=== PATIENT | female | born 1945 | race Caucasian/White ===

== ENCOUNTER 2021-05-07 09:26 | Emergency (ER) | payer MEDICARE, OTHER ==
[2021-05-07] MEDS ORDERED: diphenhydrAMINE 50 MG/ML SDV IM ONE (09:44)
[2021-05-07] MEDS ORDERED: methylPREDNISolone Sodium Succinate 125 MG/2 ML SDV IM ONE (09:44)
--- NOTE | 2021-05-07 09:51 | EDM.PDOC ---
ED HPI GENERAL MEDICAL PROBLEM - General Chief Complaint: Skin Complaint Stated Complaint: rash Time Seen by Provider: 05/07/21 09:30 Source of Information: Reports: Patient History Limitations: Reports: No Limitations - History of Present Illness INITIAL COMMENTS - FREE TEXT/NARRATIVE: Patient comes into the emergency department with a complaint of a rash. Patient states that the rash started when she woke up this morning. Patient states that it has spread throughout her body. She states that it is extremely itchy. She states that it is welt formation. She denies any shortness of breath, dizziness, lightheadedness, blurred vision, range of motion or CMS concerns. She also denies any fever. Patient states that they went out to supper last night and did have some curly fries with some seasoning that she is not accustomed to. She has put on cortisone cream over the area but has not tried any Benadryl or other remedies to help with the rash. Onset: Sudden Location: Reports: Generalized Quality: Reports: Other (itching) Severity: Moderate Improves with: Reports: None Worsens with: Reports: None Associated Symptoms: Reports: No Other Symptoms - Related Data Allergies Allergy/AdvReac Type Severity Reaction Status Date / Time No Known Allergies Allergy Verified 05/07/21 09:40 Home Meds: Home Meds Sertraline [Zoloft] 50 mg PO DAILY 05/07/21 [History] amLODIPine [Norvasc] 5 mg PO DAILY 05/07/21 [History] atorvaSTATin [Lipitor] 40 mg PO BEDTIME 05/07/21 [History] lisinopriL [Lisinopril] 5 mg PO DAILY 05/07/21 [History] Past Medical History Cardiovascular History: Reports: High Cholesterol, Hypertension Psychiatric History: Reports: Depression Social & Family History - Tobacco Use Tobacco Use Status *Q: Unknown Ever Used Tobacco ED ROS GENERAL - Review of Systems Review Of Systems: Comprehensive ROS is negative, except as noted in HPI. Constitutional: Reports: No Symptoms HEENT: Reports: No Symptoms Respiratory: Reports: No Symptoms Cardiovascular: Reports: No Symptoms Endocrine: Reports: No Symptoms GI/Abdominal: Reports: No Symptoms : Reports: No Symptoms Musculoskeletal: Reports: No Symptoms Skin: Reports: Urticaria Neurological: Reports: No Symptoms Psychiatric: Reports: No Symptoms Hematologic/Lymphatic: Reports: No Symptoms Immunologic: Reports: No Symptoms ED EXAM, SKIN/RASH Exam: See Below Exam Limited By: No Limitations General Appearance: Alert, WD/WN, No Apparent Distress Eye Exam: Bilateral Eye: EOMI, PERRL Nose: Normal Inspection, Normal Mucosa, No Blood Throat/Mouth: Normal Inspection, Normal Lips, Normal Teeth, Normal Voice, No Airway Compromise Neck: Normal Inspection, Supple, Non-Tender, Full Range of Motion Respiratory/Chest: No Respiratory Distress, Lungs Clear, Normal Breath Sounds, No Accessory Muscle Use, Chest Non-Tender Cardiovascular: Normal Peripheral Pulses, Regular Rate, Rhythm, No Edema GI/Abdominal: Normal Bowel Sounds, Soft, Non-Tender, No Abnormal Bruit Back Exam: Normal Inspection, Full Range of Motion Extremities: Normal Inspection, Normal Range of Motion, Non-Tender, No Pedal Edema, Normal Capillary Refill Neurological: Alert, Oriented, Normal Gait Psychiatric: Normal Affect, Normal Mood Skin: Intact Location, Skin: Generalized Characteristics: Urticarial Course - Vital Signs Last Recorded V/S: Last Vital Signs Temp 35.6 C L 05/07/21 09:31 Pulse 67 05/07/21 09:31 Resp 16 05/07/21 09:31 BP 152/69 H 05/07/21 09:31 Pulse Ox 100 05/07/21 09:31 - Orders/Labs/Meds Orders: Active Orders 24 hr Category Date Time Status diphenhydrAMINE [Benadryl] Med 05/07/21 09:44 Once 50 mg IM ONETIME ONE methylPREDNISolone Sod Succ [Solu-MEDROL] Med 05/07/21 09:44 Once 125 mg IM ONETIME ONE Medication Orders Diphenhydramine HCl (Diphenhydramine 50 Mg/Ml Sdv) 50 mg IM ONETIME ONE Stop: 05/07/21 09:45 Methylprednisolone Sodium Succinate (Methylprednisolone Sodium Succinate 125 Mg/2 Ml Sdv) 125 mg IM ONETIME ONE Stop: 05/07/21 09:45 Meds: Medications Generic Name Dose Route Start Last Admin Trade Name Freq PRN Reason Stop Dose Admin Diphenhydramine HCl 50 mg 05/07/21 09:44 Diphenhydramine 50 Mg/Ml Sdv IM 05/07/21 09:45 ONETIME ONE Methylprednisolone Sodium Succinate 125 mg 05/07/21 09:44 Methylprednisolone Sodium Succinate 125 Mg/2 Ml Sdv IM 05/07/21 09:45 ONETIME ONE Departure - Departure Time of Disposition: 10:00 Disposition: Home, Self-Care 01 Condition: Good Clinical Impression: Urticaria - Discharge Information *PRESCRIPTION DRUG MONITORING PROGRAM REVIEWED*: Not Applicable *COPY OF PRESCRIPTION DRUG MONITORING REPORT IN PATIENT ARTEM: Not Applicable Instructions: Nicolees, [id number] Additional Instructions: 1. Can take Benadryl every 4 hours to help with the rash 2. Can also use anti itch or Benadryl cream on the skin to help with the itching 3. increase your water intake 4. Continue all at home medications 5. Activity and diet as tolerated 6. Can take over the counter Tylenol for any pain or discomfort 7. Follow up with PCP if symptoms continue, return, or progress 8. Call with any questions or concerns Sepsis Event Note (ED) - Focused Exam Vital Signs: Vital Signs Temp Pulse Resp BP Pulse Ox 05/07/21 09:31 35.6 C L 67 16 152/69 H 100 - My Orders Last 24 Hours: My Active Orders 05/07/21 09:44 diphenhydrAMINE [Benadryl] 50 mg IM ONETIME ONE methylPREDNISolone Sod Succ [Solu-MEDROL] 125 mg IM ONETIME ONE - Assessment/Plan Last 24 Hours: My Active Orders 05/07/21 09:44 diphenhydrAMINE [Benadryl] 50 mg IM ONETIME ONE methylPREDNISolone Sod Succ [Solu-MEDROL] 125 mg IM ONETIME ONE Assessment:: 1. urticarial rash Plan: 1. Benadryl IM given in ER 2. Solumedrol IM given in ER 3. Patient and nursing staff was updated regarding the plan of care 4. Education provided the patient regarding activity, diet, rest, [id number] medication modalities, and follow-up care was provided 5. Patient and family are agreeable to the above plan of care 6. All questions and concerns were addressed with the patient and family prior to discharge
== END 2021-05-07 10:04 | disposition home or self-care (01) ==
LOC: VM.ED 09:26
DX: L50.9 Urticaria, unspecified (principal); I10 Essential (primary) hypertension; E78.00 Pure hypercholesterolemia, unspecified; Z79.899 Other long term (current) drug therapy
CPT/HCPCS: 96372; 99282; 99283; J1200; J2930

== ENCOUNTER 2021-05-14 11:04 | Inpatient (IN) | payer MEDICARE ==
[2021-05-14] MEDS ORDERED: Ondansetron 4 MG/2 ML SDV IVPUSH ONE (11:27)
[2021-05-14] MEDS: Sodium Chloride 0.9% 1,000 ML IV SCH ×2 (11:36→18:37)
[2021-05-14 11:58] LABS: CHLORIDE,CL 101 mmol/L (98-107); SODIUM,NA 140 mmol/L (136-145)
[2021-05-14 12:02] LABS: PTT,PARTIAL THROMBOPLSTIN TIME 20.9 SEC (25.6-32.8)
[2021-05-14 12:08] LABS: ANION GAP 18.8 mmol/L (5-15)
--- NOTE | 2021-05-14 13:58 | CT ---
[id number] CT/CT Abdomen Pelvis W IV EXAM: CT Abdomen Pelvis W IV CLINICAL DATA: PANCREATITIS. COMPARISON STUDY: None. FINDINGS: Prominent appearance of the pancreas head. Parenchyma demonstrates slightly heterogeneous density and enhancement. No focal lesion. No ductal dilation. Findings are nonspecific and can be seen with early/mild changes of acute pancreatitis. Liver, gallbladder, common bile duct, spleen, adrenal glands, and kidneys are unremarkable. Colonic diverticulosis. No evidence of acute diverticulitis. No colitis. No small bowel obstruction or inflammation.Appendix is normal. No lymphadenopathy, free fluid, or pneumoperitoneum. Uterus and adnexal regions are unremarkable. Urinary bladder is unremarkable. Spondylosis. No acute fracture or compression deformity. IMPRESSION: Prominent and slightly heterogeneous appearance of the pancreas head and uncinate process. No evidence of a focal lesion or ductal obstruction. Findings are nonspecific but can be seen with early changes of acute pancreatitis. Correlate with amylase/lipase. Other findings are described above. Orlin Caraballo MD 05/14/21 0882 Thank you for allowing us to participate in the care of your patient.
[2021-05-14] MEDS ORDERED: Iopamidol 612 MG/ML 100 ML Bottle IVPUSH ONE (14:09)
[2021-05-14] MEDS ORDERED: Acetaminophen 325 MG Tab PO PRN (15:14)
[2021-05-14] MEDS ORDERED: Polyethylene Glycol 3350 Powder 17 GM Packet PO PRN (15:14)
[2021-05-14] MEDS ORDERED: Morphine 2 MG/ML SYRINGE IVPUSH PRN (15:18)
[2021-05-14] MEDS ORDERED: Pantoprazole 40 MG Vial IVPUSH SCH (15:30)
[2021-05-14] MEDS: Pantoprazole 40 MG Vial IVPUSH SCH (18:11)
[2021-05-14] MEDS: Ondansetron 4 MG/2 ML SDV IV PRN (18:32)
[2021-05-14] MEDS: Simvastatin 40 MG Tab PO SCH (19:41)
[2021-05-14] MEDS: Donepezil 10 MG Tab PO SCH (19:41)
--- NOTE | 2021-05-14 22:10 | HP ---
Admission history and physical to the acute care floor at [facility]. CHIEF COMPLAINT: Nausea and vomiting. HISTORY OF PRESENT ILLNESS: A 76-year-old female patient with a past medical history of essential hypertension, coronary artery disease, chronic kidney disease, mixed hyperlipidemia, dementia, presented to the emergency room at [facility] earlier today for nausea and vomiting. The patient states that her symptoms started around 2 a.m. yesterday. The patient tried to wait out her symptoms, but they have not improved. She did try some toast, which she vomited yesterday. No previous abdominal surgeries. The patient has not had any recent infections. No recent travel. No change in medications. No questionable foods. The patient denies any fevers or chills. She complains of dizziness. No headaches or lightheadedness. The patient denies any chest pain or palpitations. No shortness of breath or cough. The patient states she has abdominal pain only during vomiting. Otherwise, her abdomen feels okay. She is passing gas. Her last bowel movement was 2 days ago. Bowel movement was formed and soft. PAST MEDICAL HISTORY: 1. Coronary artery disease. 2. Mixed hyperlipidemia. 3. Essential hypertension. 4. Major depressive disorder. 5. Memory loss. 6. Dementia without behavioral disturbance. 7. Bradycardia. SURGICAL HISTORY: 1. Laminectomy. 2. Coronary angioplasty with stent placement. 3. Tonsillectomy. 4. Tubal ligation. FAMILY HISTORY: Noncontributory. ALLERGIES: No known drug allergies. MEDICATIONS: 1. Aricept 10 mg 1 tablet p.o. daily. 2. Zocor 40 mg 1 tablet p.o. daily. 3. Amlodipine 5 mg 1 tablet p.o. daily. 4. Aspirin 81 mg 1 tablet p.o. daily. 5. Sertraline 25 mg 1 tablet p.o. daily. 6. Nitrostat 0.4 mg as directed. REVIEW OF SYSTEMS: See HPI. PHYSICAL EXAMINATION: Vital Signs: Height 5 feet 2 inches, weight 150.4 pounds, temperature 99, pulse 88, blood pressure 159/85, respiratory rate 19, oxygen saturation 98% on room air. Skin: Intact, warm, and dry. Respiratory: Lungs are decreased, but clear throughout. Cardiovascular: Regular rate and rhythm. No murmur. Abdomen: Mild epigastric pain on palpation. Bowel sounds are hypoactive x4. Soft. Extremities: No edema. Neurological: The patient is alert. The patient is oriented to person, place, and time. The patient is cooperative. LABORATORY STUDIES: 1. CBC: White blood cell count 7.4, hemoglobin 13.9, hematocrit 39.9, platelets 215,000. 2. PT 9.7, INR 0.9. 3. PTT 20.9. 4. CMP: Sodium 140, potassium 3.8, chloride 101, CO2 of 24, anion gap 18.8, BUN 26, creatinine 1.2, GFR 44, glucose 114, calcium 9.7, AST 37, ALT 39, alkaline phosphatase 6.9, total protein 8.0. 5. Phosphorus 3.2, magnesium 2.1. 6. Lactic acid 2.2. 7. Amylase 261, lipase 1888. 8. C-reactive protein less than 0.2. 9. Procalcitonin less than 0.05. IMAGING STUDIES: CT of abdomen and pelvis revealed acute pancreatitis. Prominent and slightly heterogeneous appearance of the pancreas head and uncinate process. No evidence of a focal lesion or ductal obstruction. ASSESSMENT: 1. Acute pancreatitis. 2. Dementia without behavioral disturbance. 3. Coronary artery disease. 4. Mixed hyperlipidemia. 5. Essential hypertension. 6. History of coronary angioplasty with stent. 7. Pseudo dementia. 8. Chronic kidney disease. 9. Unstable angina. 10.Major depressive disorder. PLAN: A 76-year-old female patient is admitted to the acute care floor at [facility] for the above diagnoses. The patient will be started on IV fluids. No indication for antibiotics at this time. We will keep the patient n.p.o. for bowel rest. We will start the patient on Protonix IV. The patient will also be started on IV morphine for pain control. We will advance diet possibly tomorrow if the patient is feeling better. Recheck laboratory work tomorrow morning. The patient does wish to be a full code 1. She does wish to transfer to a higher level of care should the need arise. May consider repeating CT if symptoms worsen. Continue home medications the same. This patient was seen and examined by me as an [facility] provider. TB: 05/14/2021 17:06:37 MODL: 05/14/2021 22:00:16 /[id number]
--- NOTE | 2021-05-15 04:48 | EDM.PDOC ---
ED HPI GENERAL MEDICAL PROBLEM - General Chief Complaint: Gastrointestinal Problem Stated Complaint: Nausea and Vomiting Time Seen by Provider: 05/14/21 13:38 Source of Information: Reports: Patient, Family History Limitations: Reports: No Limitations - History of Present Illness INITIAL COMMENTS - FREE TEXT/NARRATIVE: Pt. presents to ER with complaints of nausea, vomiting, and abdominal cramping. She states that the symptoms developed early Saturday AM. She has not had any fever or chills. Denies any chest pain or shortness of breath. Denies any focal abdominal pain but complains of some diffuse cramping. Denies any bloody stools. No sore throat, rhinorrhea, or congestion. Denies any chest pain or shortness of breath. Denies any current diarrhea, melena, hematochezia, or hematemesis. Pt. denies any history of ETOH consumption. Onset Date: 05/14/21 Location: Reports: Abdomen Associated Symptoms: Reports: Confusion (History of dementia), Loss of Appetite, Malaise, Nausea/Vomiting. Denies: Chest Pain, Cough, cough w sputum, Diaphoresis, Fever/Chills, Headaches, Seizure, Shortness of Breath, Weakness - Related Data Allergies Allergy/AdvReac Type Severity Reaction Status Date / Time No Known Allergies Allergy Verified 05/14/21 13:28 Home Meds: Home Meds Sertraline [Zoloft] 50 mg PO DAILY 05/07/21 [History] amLODIPine [Norvasc] 5 mg PO DAILY 05/07/21 [History] atorvaSTATin [Lipitor] 40 mg PO BEDTIME 05/07/21 [History] lisinopriL [Lisinopril] 5 mg PO DAILY 05/07/21 [History] Past Medical History Cardiovascular History: Reports: High Cholesterol, Hypertension Gastrointestinal History: Reports: Pancreatitis Psychiatric History: Reports: Dementia, Depression - Infectious Disease History Infectious Disease History: Reports: None Social & Family History - Tobacco Use Tobacco Use Status *Q: Unknown Ever Used Tobacco ED ROS GENERAL - Review of Systems Review Of Systems: See Below Constitutional: Reports: Malaise HEENT: Reports: No Symptoms Respiratory: Reports: No Symptoms Cardiovascular: Reports: No Symptoms Endocrine: Reports: No Symptoms GI/Abdominal: Reports: Nausea, Vomiting. Denies: Black Stool, Bloody Stool, Melena : Reports: No Symptoms Musculoskeletal: Reports: No Symptoms Skin: Reports: No Symptoms Neurological: Reports: No Symptoms Psychiatric: Reports: No Symptoms ED EXAM, GENERAL - Physical Exam Exam: See Below Exam Limited By: No Limitations General Appearance: Alert, WD/WN, No Apparent Distress Throat/Mouth: Normal Inspection, Normal Lips, Normal Teeth, Normal Gums, Normal Oropharynx, Normal Voice, No Airway Compromise Head: Atraumatic, Normocephalic Neck: Normal Inspection, Supple, Non-Tender, Full Range of Motion Respiratory/Chest: No Respiratory Distress, Lungs Clear, Normal Breath Sounds, No Accessory Muscle Use, Chest Non-Tender Cardiovascular: Normal Peripheral Pulses, Regular Rate, Rhythm, No Edema, No JVD Peripheral Pulses: 4+: Radial (R) GI/Abdominal: Soft, Non-Tender, No Organomegaly, No Distention, No Mass (Female) Exam: Deferred Rectal (Female) Exam: Deferred Back Exam: Normal Inspection, Full Range of Motion Extremities: Normal Inspection, Normal Range of Motion, Non-Tender, No Pedal Edema, Normal Capillary Refill Neurological: Alert, Oriented, CN II-XII Intact, Normal Cognition, No Motor/ Sensory Deficits Course - Vital Signs Last Recorded V/S: Last Vital Signs Temp 36.7 C 05/15/21 02:00 Pulse 89 05/15/21 02:00 Resp 16 05/15/21 02:00 BP 145/78 H 05/14/21 22:00 Pulse Ox 98 05/15/21 02:00 - Orders/Labs/Meds Orders: Active Orders 24 hr Category Date Time Status Sodium Chloride 0.9% [Saline Flush] Med 05/14/21 11:25 Active 10 ml FLUSH ASDIRECTED PRN Peripheral IV Insertion Adult [OM.PC] Routine Oth 05/14/21 11:25 Ordered Medication Orders Acetaminophen (Acetaminophen 325 Mg Tab) 650 mg PO Q4H PRN PRN Reason: Pain (Mild 1-3)/fever Amlodipine Besylate (Amlodipine 5 Mg Tab) 5 mg PO DAILY [facility] Donepezil HCl (Donepezil 10 Mg Tab) 10 mg PO BEDTIME [facility] Last Admin: 05/14/21 19:41 Dose: 10 mg Documented by: YAMILE Sodium Chloride (Normal Saline) 1,000 mls @ 100 mls/hr IV ASDIRECTED JITENDRA Lisinopril (Lisinopril 5 Mg Tab) 5 mg PO DAILY [facility] Morphine Sulfate (Morphine 2 Mg/Ml Syringe) 1 mg IVPUSH Q4H PRN PRN Reason: Pain Ondansetron HCl (Ondansetron 4 Mg/2 Ml Sdv) 4 mg IV Q6H PRN PRN Reason: Nausea/Vomiting Last Admin: 05/14/21 18:32 Dose: 4 mg Documented by: JOEL Pantoprazole Sodium (Pantoprazole 40 Mg Vial) 40 mg IVPUSH 0600,1800 [facility] Last Admin: 05/14/21 18:11 Dose: Not Given Documented by: SHERRY Polyethylene Glycol (Polyethylene Glycol 3350 Powder 17 Gm Packet) 17 gm PO DAILY PRN PRN Reason: Constipation Sertraline HCl (Sertraline 25 Mg Tab) 25 mg PO DAILY [facility] Simvastatin (Simvastatin 40 Mg Tab) 40 mg PO BEDTIME [facility] Last Admin: 05/14/21 19:41 Dose: 40 mg Documented by: YAMILE Sodium Chloride (Sodium Chloride 0.9% 10 Ml Syringe) 10 ml FLUSH ASDIRECTED PRN PRN Reason: Keep Vein Open Labs: Laboratory Tests 05/14/21 05/14/21 05/14/21 Range/Units 11:33 11:33 11:33 WBC 7.4 (4.0-10.0) x10^3/uL RBC 4.51 (4.00-5.50) x10^6/uL Hgb 13.9 (12.0-16.0) g/dL Hct 39.9 (33.0-47.0) % MCV 88.5 (78.0-93.0) fL MCH 30.8 (26.0-32.0) pg MCHC 34.8 (32.0-36.0) g/dL RDW Coeff of Jeimy 13.2 (10.0-15.0) % Plt Count 215 (130-400) x10^3/uL Immature Gran % (Auto) 0.30 (0.00-0.43) % Neut % (Auto) 78.0 (50.0-80.0) % Lymph % (Auto) 13.9 L (25.0-50.0) % [place] % (Auto) 7.6 (2.0-11.0) % Eos % (Auto) 0.1 (0.0-4.0) % Baso % (Auto) 0.1 L (0.2-1.2) % Neut # (Auto) 5.7 (1.8-7.7) x10^3/uL Lymph # (Auto) 1.0 (1.0-4.8) x10^3/uL [place] # (Auto) 0.6 (0.0-0.8) x10^3/uL Eos # (Auto) 0.0 (0.0-0.5) x10^3/uL Baso # (Auto) 0.0 (0.0-0.2) x10^3/uL Immature Gran # (Auto) 0.02 (0.00-0.07) x10^3/uL PT 9.7 L (9.9-12.5) SEC INR 0.9 L (2.0-3.5) APTT 20.9 L (25.6-32.8) SEC Sodium 140 (136-145) mmol/L Potassium 3.8 (3.5-5.1) mmol/L Chloride 101 (98-107) mmol/L Carbon Dioxide 24 (21-32) mmol/L Anion Gap 18.8 H (5-15) mmol/L BUN 26 H (7-18) mg/dL Creatinine 1.2 H (0.55-1.02) mg/dL Est Cr Clr Drug Dosing TNP Estimated GFR (MDRD) 44 Glucose 114 H (70-99) mg/dL Lactic Acid (0.4-2.0) mmol/L Calcium 9.7 (8.5-10.1) mg/dL Corrected Calcium 9.6 (8.5-10.1) mg/dL Phosphorus 3.2 (2.6-4.7) mg/dL Magnesium 2.1 (1.8-2.4) mg/dL Total Bilirubin 0.7 (0.2-1.0) mg/dL AST 37 (15-37) U/L ALT 39 (14-59) U/L Alkaline Phosphatase 69 (46-116) U/L C-Reactive Protein < 0.2 (<=0.9) mg/dL Total Protein 8.0 (6.4-8.2) g/dL Albumin 4.1 (3.4-5.0) g/dL Globulin 3.9 Albumin/Globulin Ratio 1.05 Triglycerides (0-149) mg/dL Amylase 261 H (25-115) U/L Lipase 1888 H (73-393) U/L Procalcitonin (0.1-0.50) ng/mL Urine Color (YELLOW) Urine Appearance (CLEAR) Urine pH (5.0-8.0) Ur Specific [employer] Urine Protein (NEGATIVE) mg/dL Urine Glucose (UA) (NEGATIVE) mg/dL Urine Ketones (NEGATIVE) mg/dL Urine Occult Blood (NEGATIVE) Urine Nitrite (NEGATIVE) Urine Bilirubin (NEGATIVE) Urine Urobilinogen (0.2) EU/dL Ur Leukocyte Esterase (NEGATIVE) Urine RBC (NOT SEEN) /HPF Urine WBC (NOT SEEN) /HPF Ur Squamous Epith Cells (NOT SEEN) /HPF Urine Bacteria (NOT SEEN) /HPF Urine Mucus (NOT SEEN) /LPF 05/14/21 05/14/21 05/14/21 Range/Units 11:33 11:33 11:33 WBC (4.0-10.0) x10^3/uL RBC (4.00-5.50) x10^6/uL Hgb (12.0-16.0) g/dL Hct (33.0-47.0) % MCV (78.0-93.0) fL MCH (26.0-32.0) pg MCHC (32.0-36.0) g/dL RDW Coeff of Jeimy (10.0-15.0) % Plt Count (130-400) x10^3/uL Immature Gran % (Auto) (0.00-0.43) % Neut % (Auto) (50.0-80.0) % Lymph % (Auto) (25.0-50.0) % [place] % (Auto) (2.0-11.0) % Eos % (Auto) (0.0-4.0) % Baso % (Auto) (0.2-1.2) % Neut # (Auto) (1.8-7.7) x10^3/uL Lymph # (Auto) (1.0-4.8) x10^3/uL [place] # (Auto) (0.0-0.8) x10^3/uL Eos # (Auto) (0.0-0.5) x10^3/uL Baso # (Auto) (0.0-0.2) x10^3/uL Immature Gran # (Auto) (0.00-0.07) x10^3/uL PT (9.9-12.5) SEC INR (2.0-3.5) APTT (25.6-32.8) SEC Sodium (136-145) mmol/L Potassium (3.5-5.1) mmol/L Chloride (98-107) mmol/L Carbon Dioxide (21-32) mmol/L Anion Gap (5-15) mmol/L BUN (7-18) mg/dL Creatinine (0.55-1.02) mg/dL Est Cr Clr Drug Dosing Estimated GFR (MDRD) Glucose (70-99) mg/dL Lactic Acid 2.2 H* (0.4-2.0) mmol/L Calcium (8.5-10.1) mg/dL Corrected Calcium (8.5-10.1) mg/dL Phosphorus (2.6-4.7) mg/dL Magnesium (1.8-2.4) mg/dL Total Bilirubin (0.2-1.0) mg/dL AST (15-37) U/L ALT (14-59) U/L Alkaline Phosphatase (46-116) U/L C-Reactive Protein (<=0.9) mg/dL Total Protein (6.4-8.2) g/dL Albumin (3.4-5.0) g/dL Globulin Albumin/Globulin Ratio Triglycerides 120 (0-149) mg/dL Amylase (25-115) U/L Lipase (73-393) U/L Procalcitonin < 0.05 L (0.1-0.50) ng/mL Urine Color (YELLOW) Urine Appearance (CLEAR) Urine pH (5.0-8.0) Ur Specific [employer] Urine Protein (NEGATIVE) mg/dL Urine Glucose (UA) (NEGATIVE) mg/dL Urine Ketones (NEGATIVE) mg/dL Urine Occult Blood (NEGATIVE) Urine Nitrite (NEGATIVE) Urine Bilirubin (NEGATIVE) Urine Urobilinogen (0.2) EU/dL Ur Leukocyte Esterase (NEGATIVE) Urine RBC (NOT SEEN) /HPF Urine WBC (NOT SEEN) /HPF Ur Squamous Epith Cells (NOT SEEN) /HPF Urine Bacteria (NOT SEEN) /HPF Urine Mucus (NOT SEEN) /LPF 05/14/21 Range/Units 12:18 WBC (4.0-10.0) x10^3/uL RBC (4.00-5.50) x10^6/uL Hgb (12.0-16.0) g/dL Hct (33.0-47.0) % MCV (78.0-93.0) fL MCH (26.0-32.0) pg MCHC (32.0-36.0) g/dL RDW Coeff of Jeimy (10.0-15.0) % Plt Count (130-400) x10^3/uL Immature Gran % (Auto) (0.00-0.43) % Neut % (Auto) (50.0-80.0) % Lymph % (Auto) (25.0-50.0) % [place] % (Auto) (2.0-11.0) % Eos % (Auto) (0.0-4.0) % Baso % (Auto) (0.2-1.2) % Neut # (Auto) (1.8-7.7) x10^3/uL Lymph # (Auto) (1.0-4.8) x10^3/uL [place] # (Auto) (0.0-0.8) x10^3/uL Eos # (Auto) (0.0-0.5) x10^3/uL Baso # (Auto) (0.0-0.2) x10^3/uL Immature Gran # (Auto) (0.00-0.07) x10^3/uL PT (9.9-12.5) SEC INR (2.0-3.5) APTT (25.6-32.8) SEC Sodium (136-145) mmol/L Potassium (3.5-5.1) mmol/L Chloride (98-107) mmol/L Carbon Dioxide (21-32) mmol/L Anion Gap (5-15) mmol/L BUN (7-18) mg/dL Creatinine (0.55-1.02) mg/dL Est Cr Clr Drug Dosing Estimated GFR (MDRD) Glucose (70-99) mg/dL Lactic Acid (0.4-2.0) mmol/L Calcium (8.5-10.1) mg/dL Corrected Calcium (8.5-10.1) mg/dL Phosphorus (2.6-4.7) mg/dL Magnesium (1.8-2.4) mg/dL Total Bilirubin (0.2-1.0) mg/dL AST (15-37) U/L ALT (14-59) U/L Alkaline Phosphatase (46-116) U/L C-Reactive Protein (<=0.9) mg/dL Total Protein (6.4-8.2) g/dL Albumin (3.4-5.0) g/dL Globulin Albumin/Globulin Ratio Triglycerides (0-149) mg/dL Amylase (25-115) U/L Lipase (73-393) U/L Procalcitonin (0.1-0.50) ng/mL Urine Color Yellow (YELLOW) Urine Appearance Clear (CLEAR) Urine pH 6.5 (5.0-8.0) Ur Specific [employer] 1.020 Urine Protein 30 H (NEGATIVE) mg/dL Urine Glucose (UA) Negative (NEGATIVE) mg/dL Urine Ketones Trace H (NEGATIVE) mg/dL Urine Occult Blood Negative (NEGATIVE) Urine Nitrite Negative (NEGATIVE) Urine Bilirubin Small H (NEGATIVE) Urine Urobilinogen 0.2 (0.2) EU/dL Ur Leukocyte Esterase Negative (NEGATIVE) Urine RBC Not seen (NOT SEEN) /HPF Urine WBC 0-5 (NOT SEEN) /HPF Ur Squamous Epith Cells Few H (NOT SEEN) /HPF Urine Bacteria Occasional H (NOT SEEN) /HPF Urine Mucus Few H (NOT SEEN) /LPF Meds: Medications Generic Name Dose Route Start Last Admin Trade Name Freq PRN Reason Stop Dose Admin Acetaminophen 650 mg 05/14/21 15:14 Acetaminophen 325 Mg Tab PO Q4H PRN Pain (Mild 1-3)/fever Amlodipine Besylate 5 mg 05/15/21 08:00 Amlodipine 5 Mg Tab PO DAILY JITENDRA Donepezil HCl 10 mg 05/14/21 20:00 05/14/21 19:41 Donepezil 10 Mg Tab PO 10 mg BEDTIME JITENDRA Administration Sodium Chloride 1,000 mls @ 100 mls/hr 05/14/21 15:30 Normal Saline IV ASDIRECTED JITENDRA Lisinopril 5 mg 05/15/21 08:00 Lisinopril 5 Mg Tab PO DAILY JITENDRA Morphine Sulfate 1 mg 05/14/21 15:18 Morphine 2 Mg/Ml Syringe IVPUSH Q4H PRN Pain Ondansetron HCl 4 mg 05/14/21 15:14 05/14/21 18:32 Ondansetron 4 Mg/2 Ml Sdv IV 4 mg Q6H PRN Administration Nausea/Vomiting Pantoprazole Sodium 40 mg 05/14/21 18:00 05/14/21 18:11 Pantoprazole 40 Mg Vial IVPUSH Not Given 0600,1800 JITENDRA Polyethylene Glycol 17 gm 05/14/21 15:14 Polyethylene Glycol 3350 Powder 17 Gm Packet PO DAILY PRN Constipation Sertraline HCl 25 mg 05/15/21 08:00 Sertraline 25 Mg Tab PO DAILY JITENDRA Simvastatin 40 mg 05/14/21 20:00 05/14/21 19:41 Simvastatin 40 Mg Tab PO 40 mg BEDTIME JITENDRA Administration Sodium Chloride 10 ml 05/14/21 11:25 Sodium Chloride 0.9% 10 Ml Syringe FLUSH ASDIRECTED PRN Keep Vein Open Discontinued Medications Generic Name Dose Route Start Last Admin Trade Name Freq PRN Reason Stop Dose Admin Sodium Chloride 1,000 mls @ 1,000 mls/hr 05/14/21 11:30 05/14/21 18:37 Normal Saline IV 1,000 mls/hr ASDIRECTED JITENDRA Administration Iopamidol 100 ml 05/14/21 14:09 05/14/21 14:12 Iopamidol 612 Mg/Ml 100 Ml Bottle IVPUSH 05/14/21 14:10 100 ml ONETIME ONE Administration Ondansetron HCl 4 mg 05/14/21 11:27 05/14/21 11:36 Ondansetron 4 Mg/2 Ml Sdv IVPUSH 05/14/21 11:28 4 mg ONETIME ONE Administration Pantoprazole Sodium 40 mg 05/14/21 15:30 05/14/21 16:58 Pantoprazole 40 Mg Vial IVPUSH 40 mg Q12H JITENDRA Administration - Radiology Interpretation Free Text/Narrative:: CT abdomen and pelvis with IV contrast obtained. Evidence of diffuse pancreatic enlargement. No obstructive pattern. No focal lesions noted. Departure - Departure Time of Disposition: 14:40 (.) Disposition: Admitted As Inpatient 67 Clinical Impression: Pancreatitis - Discharge Information Sepsis Event Note (ED) - Evaluation Sepsis Screening Result: No Definite Risk - Problem List Review Problem List Initiated/Reviewed/Updated: Yes - My Orders Last 24 Hours: My Active Orders 05/14/21 11:25 Sodium Chloride 0.9% [Saline Flush] 10 ml FLUSH ASDIRECTED PRN Peripheral IV Insertion Adult [OM.PC] Routine - Assessment/Plan Last 24 Hours: My Active Orders 05/14/21 11:25 Sodium Chloride 0.9% [Saline Flush] 10 ml FLUSH ASDIRECTED PRN Peripheral IV Insertion Adult [OM.PC] Routine Plan: Pt. will be admitted acutely. She is a code 1. Toribio Shahid will be admitting the patient. Continue with IV normal saline fluid resuscitation. She was kept NPO in ER.
[2021-05-15] MEDS: Sodium Chloride 0.9% 10 ML Syringe FLUSH PRN ×2 (05:32→08:25)
[2021-05-15] MEDS: Pantoprazole 40 MG Vial IVPUSH SCH ×2 (05:32→17:05)
[2021-05-15] MEDS: Sodium Chloride 0.9% 1,000 ML IV SCH ×4 (05:32→23:00)
[2021-05-15 07:51] LABS: ANION GAP 15.5 mmol/L (5-15)
[2021-05-15] MEDS ORDERED: Sertraline 25 MG Tab PO SCH (08:00)
[2021-05-15] MEDS ORDERED: amLODIPine 5 MG Tab PO SCH (08:00)
[2021-05-15] MEDS: Ondansetron 4 MG/2 ML SDV IV PRN ×2 (08:24→19:41)
[2021-05-15] MEDS: Lisinopril 5 MG Tab PO SCH (08:26)
--- NOTE | 2021-05-15 18:26 | PN ---
Progress Note for YEYO LOOMIS Date: 05/15/2021 Room #: [facility] CHIEF COMPLAINT: Nausea and vomiting. SUBJECTIVE: Hospital day #2 for a 76-year-old female patient who was admitted yesterday to the acute care floor at [facility] for acute pancreatitis. The patient states that her nausea has improved. She has not tried any liquids or solids. The patient has not had any problems with urination. No problems with bowel movements. The patient has not had any vomiting. She states she has intermittent epigastric pain that waxes and wanes but is always present to some degree. The patient has not had any fevers or chills. Patient denies any headaches, dizziness, or lightheadedness. No chest pain or palpitations. No shortness of breath or cough. REVIEW OF SYSTEMS: See HPI. PHYSICAL EXAMINATION: Vital Signs: Temperature 97.2, pulse 73, blood pressure 146/72, respirations 16, and oxygen saturation 97% on room air. Skin: Intact, warm, and dry. Respiratory: Lungs are decreased but clear throughout. Cardiovascular: Regular rate and rhythm, no murmur. Abdomen: Mild epigastric pain on palpation. Bowel sounds are hypoactive x4. Soft. Extremities: No edema. Neurological: The patient is alert. The patient is oriented to person, place, and time. The patient is cooperative. LABORATORY STUDIES: 1. CBC: White blood cell count 6.5, hemoglobin 11.9, hematocrit 34.8, and platelets 174,000. 2. CMP: Sodium 141, potassium 3.5, chloride 106, CO2 of 23, anion gap 15.5, BUN 20, creatinine 1.0, GFR 54, glucose 97, calcium 8.3, total bilirubin 0.6, AST 23, ALT 31, and alkaline phosphatase 52. ASSESSMENT: 1. Acute pancreatitis. 2. Dementia without behavioral disturbance. 3. Coronary artery disease. 4. Mixed hyperlipidemia. 5. Essential hypertension. 6. History of coronary angioplasty with stent placement. 7. Pseudodementia. 8. Chronic kidney disease. 9. Unstable angina. 10.Major depressive disorder. PLAN: A 76-year-old female patient was admitted to the acute care floor at [facility] for the above diagnoses. The patient will continue on IV fluids. We will recheck lipase and amylase this morning. Morphine for pain control. We would advance diet as tolerated to clear liquids and see how the patient tolerates. Continue with Zofran for nausea. Discussed with patient, she needs to get up and walk around. The patient wishes to be a full code 1. The patient does wish to transfer to a higher level of care should the need arise. May consider repeating CT scan if symptoms worsen. Otherwise, continue acute cares for now. This patient was seen and examined by me as an [facility] provider. TB: 05/15/2021 09:18:48 MODL: 05/15/2021 09:48:16 /[id number]
[2021-05-15] MEDS: Donepezil 10 MG Tab PO SCH (19:41)
[2021-05-15] MEDS: Simvastatin 40 MG Tab PO SCH (19:42)
[2021-05-16] MEDS: Pantoprazole 40 MG Vial IVPUSH SCH (06:11)
[2021-05-16 07:15] LABS: ANION GAP 13.2 mmol/L (5-15)
[2021-05-16] MEDS ORDERED: Sertraline 50 MG Tab PO SCH (08:00)
[2021-05-16] MEDS: Lisinopril 5 MG Tab PO SCH (08:29)
[2021-05-16] MEDS: Sodium Chloride 0.9% 10 ML Syringe FLUSH PRN (08:30)
[2021-05-16] MEDS: Ondansetron 4 MG/2 ML SDV IV PRN (08:30)
[2021-05-16] MEDS ORDERED: amLODIPine 10 MG Tab PO SCH (20:00)
--- NOTE | 2021-05-17 20:23 | DISCH ---
Discharge summary from the acute care floor at [facility]. HISTORY OF PRESENT ILLNESS: A 76-year-old female patient with past medical history of essential hypertension, coronary artery disease, chronic kidney disease, mixed hyperlipidemia, dementia, presented to the emergency room at [facility] 2 days ago for nausea and vomiting. It was found that the patient had acute pancreatitis that was seen on CT scan as well as an elevated lipase level. The patient had been having some nausea and vomiting since the prior day. She had a decrease in appetite. Therefore, she presented to the emergency room. BRIEF HOSPITAL COURSE: The patient did very well during her stay. The patient remained afebrile and hemodynamically stable. The patient was placed on IV fluids and kept n.p.o. for 24 hours. She was able to tolerate her diet prior to discharge. The patient's abdominal pain had resolved prior to discharge. The patient's lipase was normal on the day of discharge. The patient was able to ambulate independently in the room. CONSULTATIONS: Case Management. DIET: Low residue, no added sodium. ACTIVITY: As tolerated. REVIEW OF SYSTEMS: Constitutional: Negative. Skin: Negative. Respiratory: Negative. Cardiovascular: Negative. Abdomen: Negative. Extremities: Negative. Neurologic: Negative. DISCHARGE PHYSICAL EXAMINATION: Vital Signs: Temperature 97.6, pulse 74, blood pressure 160/64, respirations 16, oxygen saturation 97% on room air. Skin: Intact, warm, and dry. Respiratory: Lungs are decreased, but clear throughout. Cardiovascular: Regular rate and rhythm. No murmur. Abdomen: Slight tenderness in the epigastric area, otherwise benign. Bowel sounds are hypoactive x4. Extremities: No edema. Neurologic: The patient is alert. The patient is oriented to person, place, and time. DISCHARGE LABORATORY WORK: 1. CBC: White blood cell count 5.9, hemoglobin 11.7, hematocrit 35.3, platelets 166,000. 2. BMP: Sodium 142, potassium 4.2, chloride 108, CO2 of 25, anion gap 13.6, BUN 15, creatinine 1.1, GFR 48, glucose 101, calcium 8.7. ASSESSMENT: 1. Acute pancreatitis. 2. Dementia without behavioral disturbance. 3. Coronary artery disease. 4. Mixed hyperlipidemia. 5. Essential hypertension. 6. History of coronary angioplasty with stent. 7. Pseudodementia. 8. Chronic kidney disease. 9. Unstable angina. 10.Major depressive disorder. PLAN: A 76-year-old female patient was admitted to the acute care floor at [facility] 2 days ago for the above diagnoses. The patient will be discharged home today. The patient is in hemodynamically stable condition and afebrile. Laboratory work is acceptable. We did discuss her diet going forward. Continue on PPI therapy. Pain control with [id number] analgesics as needed. The patient will follow up in the clinic in 1 week for a recheck, sooner if any problems. This patient was seen and examined by me as an [facility] provider. TB: 05/17/2021 13:36:53 MODL: 05/17/2021 20:05:31 /[id number]
== END 2021-05-16 10:18 | disposition home or self-care (01) | DRG 439 ==
LOC: VM.ED 11:04 → VM.MS 14:09
PROVIDERS: ADMIT Nurse Practitioner Family; ATTEND Nurse Practitioner Family
DX: K85.90 Acute pancreatitis without necrosis or infection, unspecified (principal); I25.110 Atherosclerotic heart disease of native coronary artery with unstable angina pectoris; I10 Essential (primary) hypertension; F03.90 Unspecified dementia, unspecified severity, without behavioral disturbance, psychotic disturbance, mood disturbance, and anxiety; E78.2 Mixed hyperlipidemia; N18.9 Chronic kidney disease, unspecified; I12.9 Hypertensive chronic kidney disease with stage 1 through stage 4 chronic kidney disease, or unspecified chronic kidney disease; F32.9 Major depressive disorder, single episode, unspecified; E78.00 Pure hypercholesterolemia, unspecified; Z20.822 Contact with and (suspected) exposure to COVID-19; Z90.89 Acquired absence of other organs; Z98.51 Tubal ligation status; Z95.5 Presence of coronary angioplasty implant and graft; Z79.899 Other long term (current) drug therapy
CPT/HCPCS: 36415; 74177; 80048; 80053; 81001; 82150; 82607; 82728; 82746; 82977; 83540; 83550; 83605; 83690; 83735; 84100; 84134; 84145; 84478; 85025; 85610; 85730; 86140; 96374; 99284; 99285-25; A9270-GY; C9113; J2405; J7030; Q9967; U0002

== ENCOUNTER 2021-08-08 16:03 | Emergency (ER) | payer MEDICARE ==
[2021-08-08] MEDS ORDERED: Acetaminophen 500 MG Tab PO ONE (16:25)
--- NOTE | 2021-08-08 16:32 | EDM.PDOC ---
ED HPI GENERAL MEDICAL PROBLEM - General Chief Complaint: Upper Extremity Injury/Pain Stated Complaint: FALL AND CAN'T MOVE ARM Time Seen by Provider: 08/08/21 16:15 Source of Information: Reports: Patient History Limitations: Reports: No Limitations - History of Present Illness INITIAL COMMENTS - FREE TEXT/NARRATIVE: Patient presents to the ED for left wrist and thumb pain after a fall. She went out with her dog to get the mail and slipped and fell onto an outstretched left wrist. Pain in the left wrist and thumb with some radiation up the arm. Not on a blood thinner. did not hurt anything else. This happened about 2 hours prior to arrival. Onset: Today Duration: Hour(s): Location: Reports: Upper Extremity, Left Left Lower Arm Pain Score (Numeric/FACES): 6 - Related Data Allergies Allergy/AdvReac Type Severity Reaction Status Date / Time No Known Allergies Allergy Verified 08/08/21 16:19 Home Meds: Home Meds atorvaSTATin [Lipitor] 40 mg PO BEDTIME 05/07/21 [History] Acetaminophen [Tylenol] 650 mg PO Q4H PRN 05/15/21 [History] Donepezil HCl [Aricept] 10 mg PO BEDTIME 05/15/21 [History] Sertraline [Zoloft] 50 mg PO DAILY 05/15/21 [History] Aspirin 81 mg PO DAILY 08/08/21 [History] Nitroglycerin [Nitrostat] 0.4 mg SL ASDIRECTED 08/08/21 [History] lisinopriL [Lisinopril] 20 mg PO DAILY 08/08/21 [History] Past Medical History Cardiovascular History: Reports: Angina, High Cholesterol, Hypertension, Stents Respiratory History: Reports: Other (See Below) (pulmonary nodule) Gastrointestinal History: Reports: Pancreatitis Musculoskeletal History: Reports: Back Pain, Chronic Psychiatric History: Reports: Dementia, Depression - Infectious Disease History Infectious Disease History: Reports: None - Past Surgical History Neurological Surgical History: Reports: Laminectomy Social & Family History - Tobacco Use Tobacco Use Status *Q: Unknown Ever Used Tobacco - Recreational Drug Use Recreational Drug Use: No Drug Use in Last 12 Months: No Review of Systems - Review of Systems Review Of Systems: See Below Constitutional: Reports: No Symptoms. Denies: Fever Eyes: Reports: No Symptoms Ears: Reports: No Symptoms Nose: Reports: No Symptoms. Denies: Epistaxis Mouth/Throat: Reports: No Symptoms Respiratory: Reports: No Symptoms. Denies: Shortness of Breath, Cough Cardiovascular: Reports: No Symptoms. Denies: Chest Pain, Lightheadedness GI/Abdominal: Reports: No Symptoms. Denies: Abdominal Pain Musculoskeletal: Reports: Joint Pain (left wrist and thumb) Neurological: Reports: No Symptoms. Denies: Confusion, Dizziness, Headache ED EXAM, GENERAL - Physical Exam Exam: See Below Exam Limited By: No Limitations General Appearance: Alert, WD/WN, No Apparent Distress Eye Exam: Bilateral Eye: EOMI, Normal Inspection, PERRL Ears: Normal External Exam, Hearing Grossly Normal Nose: Normal Inspection, Normal Mucosa Throat/Mouth: Normal Inspection, Normal Voice, No Airway Compromise Head: Atraumatic, Normocephalic Neck: Normal Inspection Respiratory/Chest: No Respiratory Distress, Lungs Clear Cardiovascular: Normal Peripheral Pulses, Regular Rate, Rhythm, No Murmur Extremities: Other (sensation intact to the fingers to light touch. ecymosis noted at the left thumb base and increased pain with opposition. small echymosis mid forearm. pain with supination at the wrist. swellling at the distal radius. pain with flexion and extension of the wrist. ) Neurological: Alert, Oriented, CN II-XII Intact, No Motor/Sensory Deficits Psychiatric: Normal Affect ED TRAUMA EXTREMITY PROCEDURES - Splinting Left Upper Extremity Pre-Procedure NV Status: Normal Post-Procedure NV Status: Normal Splint Material: Fiberglass, Other (stockinet, padding, acwe wrap after) Splint Design: Thumb Spica, Sugar Tong Applied & Form Fitted By: Provider Provider Post-Splint Application NV Check: NV Status Normal Complications: No Course - Vital Signs Last Recorded V/S: Last Vital Signs Temp 36.4 C 08/08/21 16:08 Pulse 74 08/08/21 16:08 Resp 18 08/08/21 16:08 BP 174/84 H 08/08/21 16:08 Pulse Ox 100 08/08/21 16:08 - Orders/Labs/Meds Orders: Active Orders 24 hr Category Date Time Status DME for Discharge [COMM] Stat Oth 08/08/21 16:58 Ordered Meds: Medications Discontinued Medications Generic Name Dose Route Start Last Admin Trade Name Freq PRN Reason Stop Dose Admin Acetaminophen 1,000 mg 08/08/21 16:25 08/08/21 16:39 Acetaminophen 500 Mg Tab PO 08/08/21 16:26 1,000 mg ONETIME ONE Administration - Radiology Interpretation Free Text/Narrative:: distal radius fracture in good overall alignment. DJD at the bas of the thumb on the left query small fracture. preliminary read only Departure - Departure Time of Disposition: 16:59 Disposition: Home, Self-Care 01 Condition: Good Clinical Impression: Fracture of radius - Discharge Information *PRESCRIPTION DRUG MONITORING PROGRAM REVIEWED*: Not Applicable *COPY OF PRESCRIPTION DRUG MONITORING REPORT IN PATIENT ARTEM: Not Applicable Instructions: RICE Therapy for Routine Care of Injuries, [id number], Acute Compartment Syndrome, Radial Fracture, Cast or Splint Care, Adult, [id number] Referrals: PCP,None [Primary Care Provider] - Forms: ED Department Discharge Additional Instructions: Use tylenol for pain. Ice, elevate and use the sling with the hand going upward instead of down. If the fingers get swollen or are numb, elevate and wiggle the fingers. You can remove the pastor wrap if needed for swelling. leave the splint in place and rewrap the pastor wraps. If the fingers become white, numb, the pain is out of proportion to what it should and the arm tissue is hard when you remove it, proceed to the ED OBO. This could be compartment syndrome and is an emergency. Call and make appointment next week for orthopedic follow up in 7 days. Do NOT get the splint wet. If it does, return to the ED for changing of this. Sepsis Event Note (ED) - Focused Exam Vital Signs: Vital Signs Temp Pulse Resp BP Pulse Ox 08/08/21 16:08 36.4 C 74 18 174/84 H 100 - My Orders Last 24 Hours: My Active Orders 08/08/21 16:58 DME for Discharge [COMM] Stat - Assessment/Plan Last 24 Hours: My Active Orders 08/08/21 16:58 DME for Discharge [COMM] Stat
--- NOTE | 2021-08-08 17:00 | CR ---
[id number] RAD/RAD Fingers Left EXAM: RAD Wrist Left 3V Min, RAD Fingers Left INDICATION: FALL ON OUTSTRETCHED ARM. COMPARISON: None. 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 There is an acute nondisplaced distal radius fracture. IMPRESSION: 1. Acute nondisplaced distal radius fracture. Calvin Hernández MD 08/08/21 [id number] Thank you for allowing us to participate in the care of your patient.
--- NOTE | 2021-08-08 17:00 | CR ---
[id number] RAD/RAD Wrist Left 3V Min EXAM: RAD Wrist Left 3V Min, RAD Fingers Left INDICATION: FALL ON OUTSTRETCHED ARM. COMPARISON: None. 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 There is an acute nondisplaced distal radius fracture. IMPRESSION: 1. Acute nondisplaced distal radius fracture. Calvin Hernández MD 08/08/21 [id number] Thank you for allowing us to participate in the care of your patient.
== END 2021-08-08 17:17 | disposition home or self-care (01) ==
LOC: VM.ED 16:03
DX: S52.502A Unspecified fracture of the lower end of left radius, initial encounter for closed fracture (principal); I10 Essential (primary) hypertension; E78.00 Pure hypercholesterolemia, unspecified; Z79.82 Long term (current) use of aspirin; Z79.899 Other long term (current) drug therapy; W01.0XXA Fall on same level from slipping, tripping and stumbling without subsequent striking against object, initial encounter
CPT/HCPCS: 29125; 73110; 73140; 99283; A9270